=== PATIENT | male | born 1980 | race Two or more races ===

== ENCOUNTER 2017-04-10 20:05 | Emergency (ER) | payer MEDICAID ==
[~2017-04-10] VITALS: Ht 177.8 cm; Wt 173.9 kg
[2017-04-10 20:13] VITALS: BP 164/99
== END 2017-04-10 23:09 | disposition left against medical advice (07) ==
LOC: ER 20:05
DX: L02.415 Cutaneous abscess of right lower limb (principal); Z53.21 Procedure and treatment not carried out due to patient leaving prior to being seen by health care provider